=== PATIENT | male | born 1950 | race Caucasian/White ===

== ENCOUNTER 2017-12-11 15:32 | Inpatient (IN) | payer MEDICARE ==
[~2017-12-11] VITALS: Ht 170.2 cm; Wt 78.0 kg
[2017-12-11] MEDS ORDERED: SODIUM CHLORIDE FLUSH 10ML SYR IVF ONE ×2 (16:00→18:30)
[2017-12-11 16:16] LABS: BASOPHILS # (AUTO) 0.04 x10^3/uL (0-0.1); BASOPHILS % (AUTO) 0 % (0-1); EOSINOPHILS # (AUTO) 0.05 x10^3/uL (0-0.4); EOSINOPHILS % (AUTO) 0 % (1-7); LYMPHOCYTES # (AUTO) 2.64 x10^3/uL (1-3.4); LYMPHOCYTES % (AUTO) 18 % (22-44); MD NO; MEAN CORPUSCULAR HEMOGLOBIN 35.9 pg (27.5-34.5); MEAN CORPUSCULAR VOLUME 105.5 fL (81-97); MEAN PLATELET VOLUME 8.8 fL (7.4-10.4); MONOCYTES # (AUTO) 0.79 x10^3/uL (0.2-0.8); MONOCYTES % (AUTO) 5 % (2-9); NEUTROPHILS # (AUTO) 11.61 x10^3/uL (1.8-6.8); NEUTROPHILS % (AUTO) 77 % (42-75); PLATELET COUNT 292 x10^3/uL (130-400); RED CELL DISTRIBUTION WIDTH 13.2 % (9.4-14.8)
[2017-12-11 16:22] LABS: ALANINE AMINOTRANSFERASE 8 U/L (12-78); ALBUMIN 4.5 g/dL (3.4-5.0); ANION GAP 12 mmol/L (5-15); CALCIUM 8.4 mg/dL (8.5-10.1); CHLORIDE 106 mmol/L (98-107)
[2017-12-11 16:25] LABS: ALKALINE PHOSPHATASE 71 U/L (45-117); CREATININE 1.02 mg/dL (0.7-1.3); TOTAL PROTEIN 7.5 g/dL (6.4-8.2)
[2017-12-11] MEDS ORDERED: SODIUM CHLORIDE FLUSH 10ML SYR IVF PRN (19:00)
[2017-12-11] MEDS ORDERED: DOCUSATE 100 MG CAPSULE PO PRN (20:00)
[2017-12-11] MEDS ORDERED: ENALAPRILAT 1.25 MG/ML, 2ML IVPush PRN (20:00)
[2017-12-11] MEDS ORDERED: ACETAMINOPHEN 325 MG TABLET PO PRN (20:00)
[2017-12-11] MEDS ORDERED: ONDANSETRON ODT 4 MG PO PRN (20:00)
[2017-12-11 20:17] VITALS: BP 131/94
[2017-12-11] MEDS ORDERED: NAPR500T8 PO (20:51)
[2017-12-11] MEDS ORDERED: CARB1TAB3 PO (22:14)
[2017-12-11] MEDS ORDERED: PRAM0.7513 PO (22:14)
[2017-12-11 23:12] LABS: CULTURE INDICATED? NO; MICROSCOPIC AUTO
[2017-12-12 00:55] VITALS: BP 158/103
[2017-12-12 05:59] LABS: BASOPHILS # (AUTO) 0.04 x10^3/uL (0-0.1); BASOPHILS % (AUTO) 0 % (0-1); EOSINOPHILS # (AUTO) 0.09 x10^3/uL (0-0.4); EOSINOPHILS % (AUTO) 1 % (1-7); LYMPHOCYTES # (AUTO) 3.21 x10^3/uL (1-3.4); LYMPHOCYTES % (AUTO) 26 % (22-44); MD NO; MEAN CORPUSCULAR HGB CONC 33.9 g/dL (33.2-36.2); MEAN CORPUSCULAR VOLUME 106.2 fL (81-97); MEAN PLATELET VOLUME 8.9 fL (7.4-10.4); MONOCYTES # (AUTO) 1.01 x10^3/uL (0.2-0.8); MONOCYTES % (AUTO) 8 % (2-9); NEUTROPHILS % (AUTO) 65 % (42-75); PLATELET COUNT 253 x10^3/uL (130-400); RED BLOOD COUNT 4.34 x10^6/uL (4.38-5.82); RED CELL DISTRIBUTION WIDTH 13.6 % (9.4-14.8)
[2017-12-12 06:00] LABS: ANION GAP 9 mmol/L (5-15); CALCIUM 8.6 mg/dL (8.5-10.1); CHLORIDE 110 mmol/L (98-107)
[2017-12-12 06:03] LABS: CREATININE 1.01 mg/dL (0.7-1.3)
[2017-12-12 08:25] VITALS: BP 133/91
[2017-12-12] MEDS: PRAMIPEXOLE DI HCL 0.75 MG PO SCH (10:00)
[2017-12-12] MEDS: CARBIDOPA/LEVODOPA 25 MG/250 MG TABLET PO SCH ×3 (10:53→20:59)
[2017-12-12] MEDS ORDERED: NAPROXEN 500 MG TABLET PO PRN (11:30)
[2017-12-12 12:10] LABS: FOLATE LEVEL 19.1 ng/mL (3.1-17.5); THYROID STIMULATING HORMONE 1.56 mIU/L (0.358-3.740)
[2017-12-12 13:25] VITALS: BP 121/87
[2017-12-12 19:04] VITALS: BP 129/89
[2017-12-13 03:21] VITALS: BP 145/95
[2017-12-13 06:50] VITALS: BP 147/92
[2017-12-13 07:53] LABS: BASOPHILS # (AUTO) 0.05 x10^3/uL (0-0.1); BASOPHILS % (AUTO) 1 % (0-1); EOSINOPHILS # (AUTO) 0.12 x10^3/uL (0-0.4); EOSINOPHILS % (AUTO) 1 % (1-7); LYMPHOCYTES # (AUTO) 3.03 x10^3/uL (1-3.4); LYMPHOCYTES % (AUTO) 31 % (22-44); MD NO; MEAN CORPUSCULAR HEMOGLOBIN 36.1 pg (27.5-34.5); MEAN CORPUSCULAR HGB CONC 33.8 g/dL (33.2-36.2); MEAN CORPUSCULAR VOLUME 106.8 fL (81-97); MEAN PLATELET VOLUME 8.4 fL (7.4-10.4); MONOCYTES # (AUTO) 0.54 x10^3/uL (0.2-0.8); MONOCYTES % (AUTO) 5 % (2-9); NEUTROPHILS # (AUTO) 6.18 x10^3/uL (1.8-6.8); NEUTROPHILS % (AUTO) 62 % (42-75); PLATELET COUNT 243 x10^3/uL (130-400); RED CELL DISTRIBUTION WIDTH 13.8 % (9.4-14.8)
[2017-12-13] MEDS: CARBIDOPA/LEVODOPA 25 MG/250 MG TABLET PO SCH (09:43)
[2017-12-13] MEDS: PRAMIPEXOLE DI HCL 0.75 MG PO SCH (09:43)
== END 2017-12-13 12:00 | disposition home or self-care (01) | DRG 92 ==
LOC: ED 19:08 → EDIP 19:42 → 4NOR 20:11
PROVIDERS: ADMIT Hospitalist; ATTEND Hospitalist
DX: G92 Toxic encephalopathy (principal); R44.3 Hallucinations, unspecified; G20 Parkinson's disease; D72.829 Elevated white blood cell count, unspecified; D75.89 Other specified diseases of blood and blood-forming organs; T50.905A Adverse effect of unspecified drugs, medicaments and biological substances, initial encounter; Z87.891 Personal history of nicotine dependence; Z85.46 Personal history of malignant neoplasm of prostate; Z92.3 Personal history of irradiation
CPT/HCPCS: 36415; 70450; 71045; 80048; 80053; 81001; 82607; 82746; 84443; 85025; 87040; 93005; 99285

== ENCOUNTER → 2018-01-19 | Outpatient (CLI) | payer MEDICARE ==
[~2018-01-19] MED LIST: CARB1TAB3 PO; NAPR500T8 PO; PRAM0.7513 PO
== END | disposition home or self-care (01) ==
LOC: CFH 15:22
PROVIDERS: ATTEND Orthopaedic Surgery Orthopaedic Surgery of the Spine
DX: M48.07 Spinal stenosis, lumbosacral region (principal); M51.26 Other intervertebral disc displacement, lumbar region
CPT/HCPCS: 72148

== ENCOUNTER → 2018-02-26 | Outpatient (CLI) | payer MEDICARE | END | disposition home or self-care (01) | LOC: RAD 16:36 | PROVIDERS: ATTEND Orthopaedic Surgery | DX: M43.17 Spondylolisthesis, lumbosacral region (principal); M51.36 Other intervertebral disc degeneration, lumbar region; M41.86 Other forms of scoliosis, lumbar region | CPT/HCPCS: 72110 ==

== ENCOUNTER → 2018-04-28 | Outpatient (CLI) | payer MEDICARE | END | disposition home or self-care (01) | LOC: CVU 16:20 | PROVIDERS: ATTEND Nurse Practitioner Family | DX: I08.0 Rheumatic disorders of both mitral and aortic valves (principal); G20 Parkinson's disease | CPT/HCPCS: 93306 ==

== ENCOUNTER → 2018-05-24 | Outpatient (CLI) | payer MEDICARE | END | disposition home or self-care (01) | LOC: CFH 15:14 | PROVIDERS: ATTEND Physician Assistant Surgical | DX: M51.36 Other intervertebral disc degeneration, lumbar region (principal); M54.16 Radiculopathy, lumbar region; M41.86 Other forms of scoliosis, lumbar region; M25.78 Osteophyte, vertebrae | CPT/HCPCS: 72110; 72148 ==

== ENCOUNTER 2018-05-30 11:26 | Inpatient (IN) | payer MEDICARE ==
[~2018-05-30] VITALS: Ht 165.1 cm; Wt 76.7 kg
[2018-05-30 14:37] VITALS: BP 131/87
[2018-05-30] MEDS ORDERED: INSULIN LISPRO 100 UNITS/ML, PEN SQ-INSULIN SCH (15:00)
[2018-05-30] MEDS ORDERED: CHLORHEXIDINE 15 ML BOTTLE MM PRN (15:00)
[2018-05-30 15:17] LABS: BASOPHILS # (AUTO) 0.07 x10^3/uL (0-0.1); BASOPHILS % (AUTO) 1 % (0-1); EOSINOPHILS # (AUTO) 0.15 x10^3/uL (0-0.4); EOSINOPHILS % (AUTO) 1 % (1-7); LYMPHOCYTES # (AUTO) 2.96 x10^3/uL (1-3.4); LYMPHOCYTES % (AUTO) 29 % (22-44); MD NO; MEAN CORPUSCULAR HEMOGLOBIN 34.2 pg (27.5-34.5); MEAN CORPUSCULAR HGB CONC 33.3 g/dL (33.2-36.2); MEAN CORPUSCULAR VOLUME 102.8 fL (81-97); MEAN PLATELET VOLUME 8.7 fL (7.4-10.4); MONOCYTES # (AUTO) 0.48 x10^3/uL (0.2-0.8); MONOCYTES % (AUTO) 5 % (2-9); NEUTROPHILS # (AUTO) 6.43 x10^3/uL (1.8-6.8); NEUTROPHILS % (AUTO) 64 % (42-75); PLATELET COUNT 276 x10^3/uL (130-400); RED BLOOD COUNT 4.45 x10^6/uL (4.38-5.82); RED CELL DISTRIBUTION WIDTH 14.1 % (9.4-14.8)
[2018-05-30 15:28] LABS: ALANINE AMINOTRANSFERASE 15 U/L (12-78); ALBUMIN 3.8 g/dL (3.4-5.0); ANION GAP 6 mmol/L (5-15); CALCIUM 8.8 mg/dL (8.5-10.1); CHLORIDE 107 mmol/L (98-107); CREATININE 1.05 mg/dL (0.7-1.3)
[2018-05-30 15:31] LABS: ALKALINE PHOSPHATASE 71 U/L (45-117); BILIRUBIN,TOTAL 0.7 mg/dL (0.2-1.0); TOTAL PROTEIN 6.8 g/dL (6.4-8.2)
[2018-05-30 15:38] LABS: INTERNATIONAL NORMALIZED RATIO 1.07 (0.93-1.1); PROTHROMBIN TIME 11.1 Seconds (9.6-11.5)
[2018-05-30 15:44] VITALS: BP 124/89
[2018-05-30 15:46] LABS: HEMOGLOBIN A1C 5.5 % (4.2-6.3)
[2018-05-30] MEDS ORDERED: CARB1TAB44 PO (16:22)
[2018-05-30] MEDS ORDERED: ONDANSETRON ODT 4 MG PO PRN (16:30)
[2018-05-30] MEDS ORDERED: HYDROcodone/APAP 5/325 TABLET PO PRN (16:30)
[2018-05-30] MEDS ORDERED: ONDANSETRON 2MG/ML, 2ML IVPush PRN (16:30)
[2018-05-30] MEDS ORDERED: hydrALAzine 20 MG/ML, 1ML IVPush PRN (16:30)
[2018-05-30] MEDS ORDERED: morphine SULFATE 10 MG/ML, 1ML IVPush PRN (16:30)
[2018-05-30] MEDS ORDERED: ACETAMINOPHEN 325 MG TABLET PO PRN (16:30)
[2018-05-30] MEDS: CARBIDOPA/LEVODOPA CR 50 MG/200 MG TABLET PO SCH ×2 (16:30→21:15)
[2018-05-30] MEDS ORDERED: POLYETHYLENE GLYCOL 17 GM PACKET PO PRN (16:30)
[2018-05-30 17:10] LABS: MICROSCOPIC NOT IND
[2018-05-30] MEDS: MUPIROCIN OINT 2%, 22GM TP SCH (21:15)
[2018-05-30] MEDS: SODIUM CHLORIDE FLUSH 10ML SYR IVF SCH (21:16)
[2018-05-30 21:26] VITALS: BP 122/80
[2018-05-31 01:15] VITALS: BP 121/84
[2018-05-31] MEDS: ATORVASTATIN 40 MG TABLET PO SCH ×2 (01:30→21:04)
[2018-05-31 04:32] LABS: BASOPHILS # (AUTO) 0.06 x10^3/uL (0-0.1); BASOPHILS % (AUTO) 1 % (0-1); EOSINOPHILS # (AUTO) 0.15 x10^3/uL (0-0.4); EOSINOPHILS % (AUTO) 2 % (1-7); LYMPHOCYTES # (AUTO) 3.03 x10^3/uL (1-3.4); LYMPHOCYTES % (AUTO) 30 % (22-44); MD NO; MEAN CORPUSCULAR HEMOGLOBIN 34.4 pg (27.5-34.5); MEAN CORPUSCULAR HGB CONC 33.5 g/dL (33.2-36.2); MEAN CORPUSCULAR VOLUME 102.7 fL (81-97); MEAN PLATELET VOLUME 9.1 fL (7.4-10.4); MONOCYTES # (AUTO) 0.54 x10^3/uL (0.2-0.8); MONOCYTES % (AUTO) 5 % (2-9); NEUTROPHILS # (AUTO) 6.21 x10^3/uL (1.8-6.8); NEUTROPHILS % (AUTO) 62 % (42-75); PLATELET COUNT 253 x10^3/uL (130-400); RED BLOOD COUNT 4.45 x10^6/uL (4.38-5.82); RED CELL DISTRIBUTION WIDTH 14.5 % (9.4-14.8)
[2018-05-31 04:46] LABS: CHLORIDE 108 mmol/L (98-107)
[2018-05-31 04:50] LABS: ALANINE AMINOTRANSFERASE 13 U/L (12-78); ALBUMIN 3.7 g/dL (3.4-5.0); ALKALINE PHOSPHATASE 65 U/L (45-117); ANION GAP 6 mmol/L (5-15); BILIRUBIN,TOTAL 1.1 mg/dL (0.2-1.0); CALCIUM 8.6 mg/dL (8.5-10.1); CREATININE 1.08 mg/dL (0.7-1.3); TOTAL PROTEIN 6.7 g/dL (6.4-8.2)
[2018-05-31 05:39] VITALS: BP_SYST 129; BP_SYST 138; BP_DIAS 86; BP_DIAS 89
[2018-05-31] MEDS ORDERED: REGULAR INSULIN 62.5 UNITS in SODIUM CHLORIDE 0.9% 249.375 ML IV PRN (07:30)
[2018-05-31] MEDS ORDERED: EPINEPHRINE 2 MG in SODIUM CHLORIDE 0.9% 248 ML IV SCH (07:30)
[2018-05-31] MEDS ORDERED: POTASSIUM CHLORIDE 80 MEQ, SODIUM BICARBONATE 8.4% 10 MEQ, MAGNESIUM SULFATE 0.5 GM, LI... IV PRN (07:30)
[2018-05-31] MEDS ORDERED: DEXMEDETOMIDINE 200 MCG in SODIUM CHLORIDE 0.9% 48 ML IV SCH (07:30)
[2018-05-31] MEDS ORDERED: PHENYLEPHRINE 10 MG in SODIUM CHLORIDE 0.9% 249 ML IV PRN (07:30)
[2018-05-31] MEDS ORDERED: CEFUROXIME 1.5 GM in SODIUM CHLORIDE 0.9% 50 ML IVPB PRN (07:30)
[2018-05-31] MEDS ORDERED: VANCOMYCIN 1,500 MG in SODIUM CHLORIDE 0.9% 250 ML IVPB PRN (07:30)
[2018-05-31] MEDS ORDERED: MANNITOL PMX 20% 500 ML IVPB PRN (07:30)
[2018-05-31] MEDS: MUPIROCIN OINT 2%, 22GM TP SCH ×2 (09:00→21:04)
[2018-05-31] MEDS ORDERED: PRAMIPEXOLE 0.25MG TABLET PO SCH (09:00)
[2018-05-31] MEDS: ASPIRIN 325 MG TABLET PO SCH (09:00)
[2018-05-31] MEDS: PRAMIPEXOLE 0.75 MG PO SCH (09:00)
[2018-05-31 09:38] VITALS: BP 119/80
[2018-05-31] MEDS: CARBIDOPA/LEVODOPA CR 50 MG/200 MG TABLET PO SCH ×3 (09:47→21:04)
[2018-05-31] MEDS: SODIUM CHLORIDE FLUSH 10ML SYR IVF SCH ×2 (09:48→21:04)
[2018-05-31] MEDS ORDERED: ALBUMIN HUMAN 5% 500 ML IV PRN (11:30)
[2018-05-31 15:14] VITALS: BP 117/77
[2018-05-31 18:40] VITALS: BP 106/72
[2018-06-01 00:47] VITALS: BP 122/72
[2018-06-01 01:39] VITALS: BP 142/93
[2018-06-01 05:17] LABS: BASOPHILS # (AUTO) 0.05 x10^3/uL (0-0.1); BASOPHILS % (AUTO) 1 % (0-1); EOSINOPHILS # (AUTO) 0.23 x10^3/uL (0-0.4); EOSINOPHILS % (AUTO) 2 % (1-7); LYMPHOCYTES # (AUTO) 3.18 x10^3/uL (1-3.4); LYMPHOCYTES % (AUTO) 33 % (22-44); MD NO; MEAN CORPUSCULAR HEMOGLOBIN 34.7 pg (27.5-34.5); MEAN CORPUSCULAR HGB CONC 33.9 g/dL (33.2-36.2); MEAN CORPUSCULAR VOLUME 102.2 fL (81-97); MONOCYTES # (AUTO) 0.58 x10^3/uL (0.2-0.8); MONOCYTES % (AUTO) 6 % (2-9); NEUTROPHILS # (AUTO) 5.76 x10^3/uL (1.8-6.8); NEUTROPHILS % (AUTO) 59 % (42-75); PLATELET COUNT 259 x10^3/uL (130-400); RED BLOOD COUNT 4.35 x10^6/uL (4.38-5.82); RED CELL DISTRIBUTION WIDTH 14.2 % (9.4-14.8)
[2018-06-01 05:35] LABS: ALBUMIN 3.5 g/dL (3.4-5.0); ANION GAP 9 mmol/L (5-15); CALCIUM 8.7 mg/dL (8.5-10.1); CHLORIDE 107 mmol/L (98-107)
[2018-06-01 05:40] LABS: ALANINE AMINOTRANSFERASE 11 U/L (12-78); ALKALINE PHOSPHATASE 66 U/L (45-117); BILIRUBIN,TOTAL 1.5 mg/dL (0.2-1.0); CREATININE 0.97 mg/dL (0.7-1.3); TOTAL PROTEIN 6.3 g/dL (6.4-8.2)
[2018-06-01 07:48] VITALS: BP 128/87
[2018-06-01] MEDS: MUPIROCIN OINT 2%, 22GM TP SCH ×3 (09:00→21:58)
[2018-06-01] MEDS: PRAMIPEXOLE 0.75 MG PO SCH (09:00)
[2018-06-01] MEDS: ASPIRIN 325 MG TABLET PO SCH (09:11)
[2018-06-01] MEDS: SODIUM CHLORIDE FLUSH 10ML SYR IVF SCH ×2 (09:12→21:59)
[2018-06-01] MEDS: CARBIDOPA/LEVODOPA CR 50 MG/200 MG TABLET PO SCH ×3 (09:12→21:58)
[2018-06-01] MEDS ORDERED: INSULIN LISPRO 100 UNITS/ML, PEN SQ-INSULIN SCH (10:00)
[2018-06-01 10:41] LABS: BASOPHILS # (AUTO) 0.05 x10^3/uL (0-0.1); BASOPHILS % (AUTO) 1 % (0-1); EOSINOPHILS # (AUTO) 0.13 x10^3/uL (0-0.4); EOSINOPHILS % (AUTO) 1 % (1-7); LYMPHOCYTES # (AUTO) 2.39 x10^3/uL (1-3.4); LYMPHOCYTES % (AUTO) 25 % (22-44); MD NO; MEAN CORPUSCULAR HEMOGLOBIN 34.1 pg (27.5-34.5); MEAN CORPUSCULAR HGB CONC 33.1 g/dL (33.2-36.2); MEAN CORPUSCULAR VOLUME 103.3 fL (81-97); MEAN PLATELET VOLUME 8.9 fL (7.4-10.4); MONOCYTES # (AUTO) 0.47 x10^3/uL (0.2-0.8); MONOCYTES % (AUTO) 5 % (2-9); NEUTROPHILS # (AUTO) 6.54 x10^3/uL (1.8-6.8); NEUTROPHILS % (AUTO) 68 % (42-75); PLATELET COUNT 277 x10^3/uL (130-400); RED BLOOD COUNT 4.44 x10^6/uL (4.38-5.82); RED CELL DISTRIBUTION WIDTH 14.2 % (9.4-14.8)
[2018-06-01 10:53] LABS: ALBUMIN 3.7 g/dL (3.4-5.0); ANION GAP 6 mmol/L (5-15); CALCIUM 8.8 mg/dL (8.5-10.1); CHLORIDE 107 mmol/L (98-107)
[2018-06-01 10:56] LABS: ALANINE AMINOTRANSFERASE 14 U/L (12-78); ALKALINE PHOSPHATASE 67 U/L (45-117); BILIRUBIN,TOTAL 1.2 mg/dL (0.2-1.0); CREATININE 1.06 mg/dL (0.7-1.3); INTERNATIONAL NORMALIZED RATIO 1.08 (0.93-1.1); PROTHROMBIN TIME 11.2 Seconds (9.6-11.5); TOTAL PROTEIN 6.4 g/dL (6.4-8.2)
[2018-06-01 13:20] VITALS: BP 116/80
[2018-06-01 19:12] VITALS: BP 121/78
[2018-06-01] MEDS ORDERED: CHLORHEXIDINE 15 ML BOTTLE MM PRN (20:00)
[2018-06-01] MEDS ORDERED: SODIUM CHLORIDE FLUSH 10ML SYR IVF SCH (21:00)
[2018-06-01] MEDS: ATORVASTATIN 40 MG TABLET PO SCH (21:58)
[2018-06-01] MEDS ORDERED: DIPHENHYDRAMINE 25 MG CAPSULE ONE (23:12)
[2018-06-01] MEDS ORDERED: DIPHENHYDRAMINE 25 MG CAPSULE PO PRN (23:30)
[2018-06-02 04:10] VITALS: BP_SYST 136; BP_SYST 141; BP_DIAS 86; BP_DIAS 93
[2018-06-02] MEDS: MUPIROCIN OINT 2%, 22GM TP SCH (05:29)
[2018-06-02 05:42] LABS: BASOPHILS # (AUTO) 0.01 x10^3/uL (0-0.1); BASOPHILS % (AUTO) 0 % (0-1); EOSINOPHILS # (AUTO) 0.21 x10^3/uL (0-0.4); EOSINOPHILS % (AUTO) 2 % (1-7); LYMPHOCYTES # (AUTO) 3.29 x10^3/uL (1-3.4); LYMPHOCYTES % (AUTO) 33 % (22-44); MD NO; MEAN CORPUSCULAR HEMOGLOBIN 34.5 pg (27.5-34.5); MEAN CORPUSCULAR HGB CONC 33.3 g/dL (33.2-36.2); MEAN CORPUSCULAR VOLUME 103.4 fL (81-97); MEAN PLATELET VOLUME 9.4 fL (7.4-10.4); MONOCYTES # (AUTO) 0.68 x10^3/uL (0.2-0.8); MONOCYTES % (AUTO) 7 % (2-9); NEUTROPHILS % (AUTO) 59 % (42-75); PLATELET COUNT 259 x10^3/uL (130-400); RED BLOOD COUNT 4.28 x10^6/uL (4.38-5.82); RED CELL DISTRIBUTION WIDTH 14.4 % (9.4-14.8)
[2018-06-02 05:45] LABS: CALCIUM 9.2 mg/dL (8.5-10.1); CHLORIDE 108 mmol/L (98-107)
[2018-06-02 05:49] LABS: ALANINE AMINOTRANSFERASE 11 U/L (12-78); ALBUMIN 3.7 g/dL (3.4-5.0); ALKALINE PHOSPHATASE 64 U/L (45-117); ANION GAP 9 mmol/L (5-15); BILIRUBIN,TOTAL 1.1 mg/dL (0.2-1.0); CREATININE 0.89 mg/dL (0.7-1.3); TOTAL PROTEIN 6.6 g/dL (6.4-8.2)
[2018-06-02] MEDS ORDERED: PAPAVERINE 30 MG/ML, 2ML ONE (06:10)
[2018-06-02] MEDS ORDERED: HEPARIN 1,000 UNITS/ML, 10ML ONE (06:10)
[2018-06-02] MEDS ORDERED: FENTANYL PF 250 MCG/5ML ONE ×4 (06:32)
[2018-06-02] MEDS ORDERED: MIDAZOLAM 10MG/2 ML ONE (06:32)
[2018-06-02] MEDS ORDERED: CALCIUM CHLORIDE 10%, 10ML SYR ONE (06:33)
[2018-06-02] MEDS ORDERED: AMINOCAPROIC ACID 250 MG/ML, 20ML ONE (06:34)
[2018-06-02] MEDS ORDERED: PHENYLEPHRINE 10 MG/ML ONE (06:34)
[2018-06-02] MEDS ORDERED: PROPOFOL 10 MG/ML, 20ML ONE (07:18)
[2018-06-02] MEDS ORDERED: REGULAR INSULIN 62.5 UNITS in SODIUM CHLORIDE 0.9% 249.375 ML IV PRN ×2 (07:30→10:50)
[2018-06-02] MEDS ORDERED: DEXMEDETOMIDINE 200 MCG in SODIUM CHLORIDE 0.9% 48 ML IV SCH (07:30)
[2018-06-02] MEDS ORDERED: PHENYLEPHRINE 10 MG in SODIUM CHLORIDE 0.9% 249 ML IV PRN ×2 (07:30→10:50)
[2018-06-02] MEDS ORDERED: MANNITOL PMX 20% 500 ML IVPB PRN (07:30)
[2018-06-02] MEDS ORDERED: VANCOMYCIN 1,500 MG in SODIUM CHLORIDE 0.9% 250 ML IVPB PRN (07:30)
[2018-06-02] MEDS ORDERED: ALBUMIN HUMAN 5% 500 ML IV PRN (07:30)
[2018-06-02] MEDS ORDERED: EPINEPHRINE 2 MG in SODIUM CHLORIDE 0.9% 248 ML IV SCH (07:30)
[2018-06-02] MEDS ORDERED: DIPHENHYDRAMINE 25 MG CAPSULE PO PRN (07:30)
[2018-06-02] MEDS ORDERED: CEFUROXIME 1.5 GM in SODIUM CHLORIDE 0.9% 50 ML IVPB PRN (07:30)
[2018-06-02] MEDS ORDERED: POTASSIUM CHLORIDE 80 MEQ, SODIUM BICARBONATE 8.4% 10 MEQ, MAGNESIUM SULFATE 0.5 GM, LI... IV PRN (07:30)
[2018-06-02] MEDS: DOCUSATE 100 MG CAPSULE PO SCH ×2 (09:00→21:07)
[2018-06-02] MEDS: PRAMIPEXOLE 0.75 MG PO SCH (09:00)
[2018-06-02] MEDS ORDERED: LACTATED RINGERS 1,000 ML IV SCH (10:50)
[2018-06-02] MEDS ORDERED: VASOPRESSIN 50 UNIT in SODIUM CHLORIDE 0.9% 247.5 ML IV PRN (10:50)
[2018-06-02] MEDS ORDERED: NITROGLYCERIN/D5W PMX 250 ML IV PRN (10:50)
[2018-06-02] MEDS ORDERED: DEXMEDETOMIDINE 200 MCG in SODIUM CHLORIDE 0.9% 48 ML IV PRN (10:50)
[2018-06-02] MEDS ORDERED: DOBUTAMINE 250 MG in SODIUM CHLORIDE 0.9% 230 ML IV PRN (10:50)
[2018-06-02] MEDS ORDERED: SODIUM CHLORIDE 0.9% 1,000 ML IV PRN (10:50)
[2018-06-02] MEDS ORDERED: LIDOCAINE 2% 100MG/5ML SYRINGE ONE (10:56)
[2018-06-02] MEDS ORDERED: ALBUMIN HUMAN 25% 50 ML ONE (10:57)
[2018-06-02] MEDS ORDERED: HEPARIN 1,000 UNITS/ML, 30ML ONE (10:57)
[2018-06-02] MEDS ORDERED: methylPREDNISolone SOD SUCC 125 MG/2 ML ONE (10:57)
[2018-06-02] MEDS ORDERED: BISACODYL 10 MG SUPP PR PRN (11:00)
[2018-06-02] MEDS ORDERED: BISACODYL 5 MG EC TABLET PO PRN (11:00)
[2018-06-02] MEDS ORDERED: morphine SULFATE 10 MG/ML, 1ML IVPush PRN (11:00)
[2018-06-02] MEDS: KSCALE TO 4.5 IV SCH ×3 (11:00→23:00)
[2018-06-02] MEDS ORDERED: EPINEPHRINE 2 MG in SODIUM CHLORIDE 0.9% 248 ML IV PRN (11:00)
[2018-06-02] MEDS: INSULIN LISPRO 100 UNITS/ML, PEN SQ-INSULIN SCH ×3 (11:00→21:00)
[2018-06-02] MEDS ORDERED: ACETAMINOPHEN 650 MG SUPP PR PRN (11:00)
[2018-06-02] MEDS ORDERED: INSULIN REGULAR 100 UNITS/ML, 3ML VIAL IVPush PRN (11:00)
[2018-06-02] MEDS ORDERED: HYDROcodone/APAP 10/325 MG TABLET PO PRN (11:00)
[2018-06-02] MEDS ORDERED: HYDROcodone/APAP 5/325 TABLET PO PRN (11:00)
[2018-06-02] MEDS ORDERED: DEXTROSE 4 GM TAB.CHEW PO PRN (11:00)
[2018-06-02] MEDS ORDERED: PROCHLORPERAZINE 5 MG/ML, 2ML IVPush PRN (11:00)
[2018-06-02] MEDS ORDERED: DEXTROSE 50%, 50ML SYRINGE IVPush PRN (11:00)
[2018-06-02] MEDS ORDERED: SODIUM BICARB 8.4%, 50ML SYRINGE IV PRN (11:00)
[2018-06-02] MEDS ORDERED: ONDANSETRON 2MG/ML, 2ML IVPush PRN (11:00)
[2018-06-02] MEDS ORDERED: MIDAZOLAM 1 MG/ML, 5ML IVPush PRN (11:00)
[2018-06-02] MEDS ORDERED: ACETAMINOPHEN 325 MG TABLET PO PRN (11:00)
[2018-06-02] MEDS ORDERED: GLUCAGON 1 MG IM PRN (11:00)
[2018-06-02] MEDS ORDERED: LACTATED RINGERS 1,000 ML IV PRN (11:00)
[2018-06-02 11:23] LABS: GLUCOSE BY BLOOD GAS ANALYZER 128 mg/dL (70-110); HEMOGLOBIN BY BLOOD GAS ANALYZ 13.1 g/dL (14.0-18.0); POTASSIUM BY BLOOD GAS ANALYZR 3.5 mmol/L (3.6-5.5)
[2018-06-02] MEDS ORDERED: MAGNESIUM SULFATE 1 GM in SODIUM CHLORIDE 0.9% 50 ML IVPB SCH (12:00)
[2018-06-02] MEDS ORDERED: MAGNESIUM SULFATE 1 GM in STERILE WATER 25 ML IVPB SCH (12:00)
[2018-06-02] MEDS ORDERED: MAGNESIUM SULFATE IVPB SCH (12:00)
[2018-06-02] MEDS ORDERED: STERILE WATER IVPB SCH (12:00)
[2018-06-02 12:22] LABS: INTERNATIONAL NORMALIZED RATIO 1.32 (0.93-1.1); PROTHROMBIN TIME 13.7 Seconds (9.6-11.5)
[2018-06-02 12:28] LABS: PARTIAL THROMBOPLASTIN TIME > 153 Seconds (25-31)
[2018-06-02] MEDS ORDERED: POTASSIUM CHLORIDE PMX 100 ML IV ONE ×2 (13:00→17:30)
[2018-06-02] MEDS: CARBIDOPA/LEVODOPA CR 50 MG/200 MG TABLET PO SCH ×3 (13:44→21:04)
[2018-06-02] MEDS ORDERED: CARBIDOPA/LEVODOPA 25 MG/100 MG TABLET PO ONE (14:00)
[2018-06-02] MEDS ORDERED: ALBUMIN HUMAN 5% 500 ML IV ONE (16:30)
[2018-06-02] MEDS: OXYcodone IR 5MG TABLET PO PRN (18:12)
[2018-06-02] MEDS: CEFUROXIME 1.5 GM in SODIUM CHLORIDE 0.9% 50 ML IVPB SCH (18:27)
[2018-06-02] MEDS: MUPIROCIN OINT 2%, 22GM NAS SCH (21:04)
[2018-06-02] MEDS: SODIUM CHLORIDE FLUSH 10ML SYR IVF SCH (21:04)
[2018-06-02] MEDS: ATORVASTATIN 40 MG TABLET PO SCH (21:07)
[2018-06-03] MEDS: OXYcodone IR 5MG TABLET PO PRN ×4 (00:31→15:57)
[2018-06-03] MEDS: KSCALE TO 4.5 IV SCH (05:00)
[2018-06-03 05:35] LABS: BASOPHILS # (AUTO) 0.02 x10^3/uL (0-0.1); BASOPHILS % (AUTO) 0 % (0-1); EOSINOPHILS % (AUTO) 0 % (1-7); LYMPHOCYTES # (AUTO) 1.21 x10^3/uL (1-3.4); LYMPHOCYTES % (AUTO) 8 % (22-44); MD NO; MEAN CORPUSCULAR HEMOGLOBIN 35.1 pg (27.5-34.5); MEAN CORPUSCULAR HGB CONC 34.3 g/dL (33.2-36.2); MEAN CORPUSCULAR VOLUME 102.4 fL (81-97); MEAN PLATELET VOLUME 9.3 fL (7.4-10.4); MONOCYTES % (AUTO) 8 % (2-9); NEUTROPHILS # (AUTO) 12.38 x10^3/uL (1.8-6.8); NEUTROPHILS % (AUTO) 84 % (42-75); PLATELET COUNT 182 x10^3/uL (130-400); RED BLOOD COUNT 3.03 x10^6/uL (4.38-5.82); RED CELL DISTRIBUTION WIDTH 14.4 % (9.4-14.8)
[2018-06-03 05:49] LABS: ALBUMIN 3.4 g/dL (3.4-5.0); ANION GAP 6 mmol/L (5-15); CALCIUM 7.8 mg/dL (8.5-10.1); CHLORIDE 114 mmol/L (98-107); CREATININE 0.76 mg/dL (0.7-1.3)
[2018-06-03] MEDS: MUPIROCIN OINT 2%, 22GM NAS SCH ×2 (08:00→20:30)
[2018-06-03] MEDS: CEFUROXIME 1.5 GM in SODIUM CHLORIDE 0.9% 50 ML IVPB SCH (08:00)
[2018-06-03] MEDS: INSULIN LISPRO 100 UNITS/ML, PEN SQ-INSULIN SCH ×4 (08:00→20:33)
[2018-06-03] MEDS: PRAMIPEXOLE 0.75 MG PO SCH (08:02)
[2018-06-03] MEDS: ASPIRIN 81 MG TABLET EC PO SCH (08:19)
[2018-06-03] MEDS: DOCUSATE 100 MG CAPSULE PO SCH ×2 (08:19→20:31)
[2018-06-03] MEDS: CARBIDOPA/LEVODOPA CR 50 MG/200 MG TABLET PO SCH ×3 (08:19→20:29)
[2018-06-03] MEDS: SODIUM CHLORIDE FLUSH 10ML SYR IVF SCH ×3 (08:20→20:30)
[2018-06-03] MEDS ORDERED: MAGNESIUM SULFATE IV SCH (08:30)
[2018-06-03] MEDS ORDERED: STERILE WATER IV SCH (08:30)
[2018-06-03] MEDS ORDERED: MAGNESIUM SULF. PMX 20GM/500ML 50 ML IV SCH (08:30)
[2018-06-03] MEDS: WARFARIN BIOPROSTHETIC VALVE PROTOCOL 2-3 XX SCH (09:00)
[2018-06-03] MEDS: MAGNESIUM SULFATE 1 GM in STERILE WATER 25 ML IV SCH (10:20)
[2018-06-03] MEDS: CHLORHEXIDINE 15 ML BOTTLE MM SCH (10:46)
[2018-06-03 11:57] LABS: INTERNATIONAL NORMALIZED RATIO 1.26 (0.93-1.1)
[2018-06-03] MEDS ORDERED: MAGNESIUM HYDROXIDE 8%, 30ML UDC PO PRN (13:00)
[2018-06-03 17:30] VITALS: BP 115/68
[2018-06-03] MEDS ORDERED: WARFARIN 5 MG TABLET PO-COUM ONE (18:00)
[2018-06-03 19:21] VITALS: BP 112/75
[2018-06-03] MEDS: ATORVASTATIN 40 MG TABLET PO SCH (20:28)
[2018-06-04 00:11] VITALS: BP 111/67
[2018-06-04] MEDS: CHLORHEXIDINE 15 ML BOTTLE MM SCH ×3 (00:22→21:18)
[2018-06-04 04:51] LABS: MEAN CORPUSCULAR HEMOGLOBIN 34.9 pg (27.5-34.5); MEAN CORPUSCULAR HGB CONC 33.7 g/dL (33.2-36.2); MEAN CORPUSCULAR VOLUME 103.6 fL (81-97); MEAN PLATELET VOLUME 9.6 fL (7.4-10.4); PLATELET COUNT 173 x10^3/uL (130-400); RED BLOOD COUNT 3.02 x10^6/uL (4.38-5.82); RED CELL DISTRIBUTION WIDTH 14.5 % (9.4-14.8)
[2018-06-04 05:03] LABS: ANION GAP 7 mmol/L (5-15); CALCIUM 8.2 mg/dL (8.5-10.1); CHLORIDE 108 mmol/L (98-107); CREATININE 0.78 mg/dL (0.7-1.3)
[2018-06-04 05:46] LABS: BASOPHILS # (AUTO) 0.07 x10^3/uL (0-0.1); BASOPHILS % (AUTO) 0 % (0-1); EOSINOPHILS # (AUTO) 0.01 x10^3/uL (0-0.4); EOSINOPHILS % (AUTO) 0 % (1-7); LYMPHOCYTES # (AUTO) 1.26 x10^3/uL (1-3.4); LYMPHOCYTES % (AUTO) 8 % (22-44); MD SCAN; MONOCYTES # (AUTO) 1.05 x10^3/uL (0.2-0.8); MONOCYTES % (AUTO) 6 % (2-9); NEUTROPHILS # (AUTO) 14.37 x10^3/uL (1.8-6.8); NEUTROPHILS % (AUTO) 86 % (42-75)
[2018-06-04 06:40] LABS: INTERNATIONAL NORMALIZED RATIO 1.16 (0.93-1.1)
[2018-06-04] MEDS: INSULIN LISPRO 100 UNITS/ML, PEN SQ-INSULIN SCH ×4 (07:00→20:52)
[2018-06-04 07:50] VITALS: BP 113/72
[2018-06-04] MEDS: ENOXAPARIN 40 MG/0.4 ML SQ SCH (08:13)
[2018-06-04] MEDS: ASPIRIN 81 MG TABLET EC PO SCH (08:13)
[2018-06-04] MEDS: DOCUSATE 100 MG CAPSULE PO SCH ×2 (08:13→21:12)
[2018-06-04] MEDS: FUROSEMIDE 20 MG/2 ML IV SCH ×2 (08:13→17:05)
[2018-06-04] MEDS: SODIUM CHLORIDE FLUSH 10ML SYR IVF SCH ×3 (08:14→21:12)
[2018-06-04] MEDS: MUPIROCIN OINT 2%, 22GM NAS SCH ×2 (08:14→21:11)
[2018-06-04] MEDS: POTASSIUM CHLORIDE 10 MEQ TABLET.ER PO SCH (08:14)
[2018-06-04] MEDS: PRAMIPEXOLE 0.75 MG PO SCH (08:15)
[2018-06-04] MEDS: WARFARIN BIOPROSTHETIC VALVE PROTOCOL 2-3 XX SCH (08:16)
[2018-06-04] MEDS: CARBIDOPA/LEVODOPA CR 50 MG/200 MG TABLET PO SCH ×3 (08:16→18:41)
[2018-06-04] MEDS ORDERED: FUROSEMIDE 20 MG/2 ML IV SCH (09:00)
[2018-06-04 09:21] LABS: MICROSCOPIC AUTO
[2018-06-04 09:26] LABS: CULTURE INDICATED? NO
[2018-06-04] MEDS: MAGNESIUM SULFATE 1 GM in STERILE WATER 25 ML IV SCH (10:00)
[2018-06-04 16:23] VITALS: BP 103/70
[2018-06-04] MEDS ORDERED: WARFARIN 5 MG TABLET PO-COUM ONE (18:00)
[2018-06-04 19:07] VITALS: BP 85/51
[2018-06-04 19:11] VITALS: BP 98/65
[2018-06-04] MEDS: OXYcodone IR 5MG TABLET PO PRN (21:12)
[2018-06-04] MEDS: ATORVASTATIN 40 MG TABLET PO SCH (21:12)
[2018-06-05 00:27] VITALS: BP 123/80
[2018-06-05 03:35] LABS: ANION GAP 8 mmol/L (5-15); CALCIUM 7.7 mg/dL (8.5-10.1); CHLORIDE 107 mmol/L (98-107); CREATININE 0.77 mg/dL (0.7-1.3)
[2018-06-05 03:38] LABS: INTERNATIONAL NORMALIZED RATIO 1.46 (0.93-1.1); PROTHROMBIN TIME 15.1 Seconds (9.6-11.5)
[2018-06-05 03:47] LABS: BASOPHILS # (AUTO) 0.05 x10^3/uL (0-0.1); BASOPHILS % (AUTO) 0 % (0-1); EOSINOPHILS # (AUTO) 0.03 x10^3/uL (0-0.4); EOSINOPHILS % (AUTO) 0 % (1-7); LYMPHOCYTES # (AUTO) 1.81 x10^3/uL (1-3.4); LYMPHOCYTES % (AUTO) 14 % (22-44); MD NO; MEAN CORPUSCULAR HEMOGLOBIN 35.6 pg (27.5-34.5); MEAN CORPUSCULAR HGB CONC 34.5 g/dL (33.2-36.2); MEAN CORPUSCULAR VOLUME 103.3 fL (81-97); MEAN PLATELET VOLUME 9.1 fL (7.4-10.4); MONOCYTES # (AUTO) 0.93 x10^3/uL (0.2-0.8); MONOCYTES % (AUTO) 7 % (2-9); NEUTROPHILS # (AUTO) 10.22 x10^3/uL (1.8-6.8); NEUTROPHILS % (AUTO) 78 % (42-75); PLATELET COUNT 175 x10^3/uL (130-400); RED BLOOD COUNT 2.66 x10^6/uL (4.38-5.82); RED CELL DISTRIBUTION WIDTH 14.1 % (9.4-14.8)
[2018-06-05] MEDS: INSULIN LISPRO 100 UNITS/ML, PEN SQ-INSULIN SCH ×2 (06:26→12:54)
[2018-06-05 07:12] VITALS: BP 119/78
[2018-06-05] MEDS: WARFARIN BIOPROSTHETIC VALVE PROTOCOL 2-3 XX SCH (07:43)
[2018-06-05] MEDS: ASPIRIN 81 MG TABLET EC PO SCH (09:24)
[2018-06-05] MEDS: POTASSIUM CHLORIDE 10 MEQ TABLET.ER PO SCH (09:24)
[2018-06-05] MEDS: FUROSEMIDE 20 MG/2 ML IV SCH ×2 (09:25→17:10)
[2018-06-05] MEDS: SODIUM CHLORIDE FLUSH 10ML SYR IVF SCH ×2 (09:25→20:38)
[2018-06-05] MEDS: ENOXAPARIN 40 MG/0.4 ML SQ SCH (09:25)
[2018-06-05] MEDS: MUPIROCIN OINT 2%, 22GM NAS SCH ×2 (09:25→20:39)
[2018-06-05] MEDS: PRAMIPEXOLE 0.75 MG PO SCH (09:27)
[2018-06-05] MEDS: DOCUSATE 100 MG CAPSULE PO SCH ×2 (09:27→20:38)
[2018-06-05] MEDS: CARBIDOPA/LEVODOPA CR 50 MG/200 MG TABLET PO SCH ×3 (10:13→20:38)
[2018-06-05] MEDS: OXYcodone IR 5MG TABLET PO PRN ×2 (13:02→17:09)
[2018-06-05 13:08] VITALS: BP 95/62
[2018-06-05] MEDS ORDERED: WARFARIN 5 MG TABLET PO-COUM ONE (18:00)
[2018-06-05 18:45] VITALS: BP 99/64
[2018-06-05] MEDS: ATORVASTATIN 40 MG TABLET PO SCH (20:38)
[2018-06-06 01:10] VITALS: BP 123/82
[2018-06-06] MEDS: OXYcodone IR 5MG TABLET PO PRN ×2 (04:11→10:30)
[2018-06-06 04:32] LABS: ANION GAP 4 mmol/L (5-15); CALCIUM 7.8 mg/dL (8.5-10.1); CHLORIDE 107 mmol/L (98-107); CREATININE 0.81 mg/dL (0.7-1.3)
[2018-06-06 04:35] LABS: BASOPHILS # (AUTO) 0.05 x10^3/uL (0-0.1); BASOPHILS % (AUTO) 0 % (0-1); EOSINOPHILS # (AUTO) 0.16 x10^3/uL (0-0.4); EOSINOPHILS % (AUTO) 2 % (1-7); LYMPHOCYTES % (AUTO) 21 % (22-44); MD NO; MEAN CORPUSCULAR HEMOGLOBIN 35.1 pg (27.5-34.5); MEAN CORPUSCULAR HGB CONC 33.9 g/dL (33.2-36.2); MEAN CORPUSCULAR VOLUME 103.5 fL (81-97); MEAN PLATELET VOLUME 9.5 fL (7.4-10.4); MONOCYTES # (AUTO) 0.86 x10^3/uL (0.2-0.8); MONOCYTES % (AUTO) 8 % (2-9); NEUTROPHILS # (AUTO) 7.66 x10^3/uL (1.8-6.8); NEUTROPHILS % (AUTO) 70 % (42-75); PLATELET COUNT 236 x10^3/uL (130-400); RED BLOOD COUNT 2.69 x10^6/uL (4.38-5.82); RED CELL DISTRIBUTION WIDTH 14.6 % (9.4-14.8)
[2018-06-06 04:37] LABS: INTERNATIONAL NORMALIZED RATIO 1.8 (0.93-1.1); PROTHROMBIN TIME 18.5 Seconds (9.6-11.5)
[2018-06-06 07:01] VITALS: BP 129/85
[2018-06-06] MEDS: METOPROLOL TARTRATE 25 MG TABLET PO SCH ×2 (08:03→17:03)
[2018-06-06] MEDS: ASPIRIN 81 MG TABLET EC PO SCH (08:07)
[2018-06-06] MEDS: FUROSEMIDE 20 MG/2 ML IV SCH ×2 (08:07→17:08)
[2018-06-06] MEDS: POTASSIUM CHLORIDE 10 MEQ TABLET.ER PO SCH (08:08)
[2018-06-06] MEDS: CARBIDOPA/LEVODOPA CR 50 MG/200 MG TABLET PO SCH ×3 (08:08→17:01)
[2018-06-06] MEDS: DOCUSATE 100 MG CAPSULE PO SCH ×2 (08:09→21:21)
[2018-06-06] MEDS: PRAMIPEXOLE 0.75 MG PO SCH (08:10)
[2018-06-06] MEDS: MUPIROCIN OINT 2%, 22GM NAS SCH ×2 (08:11→21:22)
[2018-06-06] MEDS: SODIUM CHLORIDE FLUSH 10ML SYR IVF SCH ×2 (08:15→21:19)
[2018-06-06] MEDS: WARFARIN BIOPROSTHETIC VALVE PROTOCOL 2-3 XX SCH (09:00)
[2018-06-06] MEDS: ENOXAPARIN 40 MG/0.4 ML SQ SCH (10:30)
[2018-06-06 13:05] VITALS: BP 110/75
[2018-06-06 16:59] VITALS: BP 106/73
[2018-06-06] MEDS ORDERED: WARFARIN 5 MG TABLET PO-COUM ONE (18:00)
[2018-06-06 20:30] VITALS: BP 119/75
[2018-06-06] MEDS: ATORVASTATIN 40 MG TABLET PO SCH (21:20)
[2018-06-07] VITALS (7 sets, daily range): BP systolic 101–134; BP diastolic 66–88
[2018-06-07 04:37] LABS: BASOPHILS # (AUTO) 0.05 x10^3/uL (0-0.1); BASOPHILS % (AUTO) 1 % (0-1); EOSINOPHILS # (AUTO) 0.22 x10^3/uL (0-0.4); EOSINOPHILS % (AUTO) 2 % (1-7); LYMPHOCYTES # (AUTO) 2.82 x10^3/uL (1-3.4); LYMPHOCYTES % (AUTO) 27 % (22-44); MD NO; MEAN CORPUSCULAR HEMOGLOBIN 34.9 pg (27.5-34.5); MEAN CORPUSCULAR HGB CONC 33.8 g/dL (33.2-36.2); MEAN CORPUSCULAR VOLUME 103.2 fL (81-97); MEAN PLATELET VOLUME 8.9 fL (7.4-10.4); MONOCYTES # (AUTO) 0.86 x10^3/uL (0.2-0.8); MONOCYTES % (AUTO) 8 % (2-9); NEUTROPHILS # (AUTO) 6.69 x10^3/uL (1.8-6.8); NEUTROPHILS % (AUTO) 63 % (42-75); PLATELET COUNT 277 x10^3/uL (130-400); RED BLOOD COUNT 2.71 x10^6/uL (4.38-5.82); RED CELL DISTRIBUTION WIDTH 14.3 % (9.4-14.8)
[2018-06-07 04:51] LABS: INTERNATIONAL NORMALIZED RATIO 2.22 (0.93-1.1); PROTHROMBIN TIME 22.7 Seconds (9.6-11.5)
[2018-06-07 04:55] LABS: ANION GAP 5 mmol/L (5-15); CALCIUM 8.3 mg/dL (8.5-10.1); CHLORIDE 106 mmol/L (98-107)
[2018-06-07 04:56] LABS: CREATININE 0.86 mg/dL (0.7-1.3)
[2018-06-07] MEDS: METOPROLOL TARTRATE 25 MG TABLET PO SCH ×2 (05:25→17:01)
[2018-06-07] MEDS ORDERED: FILTER 0.22 MICRON IV ONE (06:00)
[2018-06-07] MEDS ORDERED: AMIODARONE 150 MG in DEXTROSE 5% 100 ML IV ONE ×2 (06:00→12:00)
[2018-06-07] MEDS: DOCUSATE 100 MG CAPSULE PO SCH ×2 (07:39→21:11)
[2018-06-07] MEDS: CARBIDOPA/LEVODOPA CR 50 MG/200 MG TABLET PO SCH ×3 (07:41→17:00)
[2018-06-07] MEDS: ASPIRIN 81 MG TABLET EC PO SCH (07:42)
[2018-06-07] MEDS: POTASSIUM CHLORIDE 10 MEQ TABLET.ER PO SCH (07:43)
[2018-06-07] MEDS: PRAMIPEXOLE 0.75 MG PO SCH (07:45)
[2018-06-07] MEDS: MUPIROCIN OINT 2%, 22GM NAS SCH (07:46)
[2018-06-07] MEDS: SODIUM CHLORIDE FLUSH 10ML SYR IVF SCH ×2 (07:49→21:10)
[2018-06-07] MEDS: FUROSEMIDE 20 MG/2 ML IV SCH (07:49)
[2018-06-07] MEDS: ENOXAPARIN 40 MG/0.4 ML SQ SCH (07:56)
[2018-06-07] MEDS: WARFARIN BIOPROSTHETIC VALVE PROTOCOL 2-3 XX SCH (08:05)
[2018-06-07] MEDS ORDERED: FILTER 0.22 MICRON FOR AMIODARONE IV PRN (12:00)
[2018-06-07] MEDS ORDERED: AMIODARONE 900 MG in DEXTROSE 5% 482 ML IV PRN (13:00)
[2018-06-07] MEDS: FUROSEMIDE 40 MG/4 ML IV SCH (17:00)
[2018-06-07] MEDS ORDERED: WARFARIN 5 MG TABLET PO-COUM ONE (18:00)
[2018-06-07] MEDS: ATORVASTATIN 40 MG TABLET PO SCH (21:11)
[2018-06-08 01:45] VITALS: BP 111/71
[2018-06-08 04:50] LABS: CHLORIDE 106 mmol/L (98-107)
[2018-06-08 04:51] LABS: INTERNATIONAL NORMALIZED RATIO 2.89 (0.93-1.1); PROTHROMBIN TIME 29.4 Seconds (9.6-11.5)
[2018-06-08 04:57] LABS: ANION GAP 7 mmol/L (5-15); CREATININE 0.81 mg/dL (0.7-1.3)
[2018-06-08 06:22] VITALS: BP 130/82
[2018-06-08] MEDS: METOPROLOL TARTRATE 25 MG TABLET PO SCH (06:22)
[2018-06-08 06:57] VITALS: BP 125/69
[2018-06-08] MEDS ORDERED: ASPI-621 PO (07:28)
[2018-06-08] MEDS ORDERED: DOCU-131 PO (07:28)
[2018-06-08] MEDS ORDERED: WARF5TAB PO (07:28)
[2018-06-08] MEDS ORDERED: METO25TA35 PO (07:28)
[2018-06-08] MEDS ORDERED: FURO40TA6 PO (07:28)
[2018-06-08] MEDS ORDERED: POTA20PA25 PO (07:28)
[2018-06-08] MEDS ORDERED: ATOR40TA78 PO (07:28)
[2018-06-08] MEDS ORDERED: PRAMIPEXOLE PO (07:28)
[2018-06-08] MEDS ORDERED: POTASSIUM CHLORIDE 20 MEQ TAB.ER.PRT PO ONE (07:30)
[2018-06-08] MEDS ORDERED: POTASSIUM CHLORIDE 20 MEQ PACKET PO SCH (07:30)
[2018-06-08] MEDS: FUROSEMIDE 40 MG/4 ML IV SCH (08:17)
[2018-06-08] MEDS: ASPIRIN 81 MG TABLET EC PO SCH (08:20)
[2018-06-08] MEDS: DOCUSATE 100 MG CAPSULE PO SCH (08:20)
[2018-06-08] MEDS: CARBIDOPA/LEVODOPA CR 50 MG/200 MG TABLET PO SCH (08:20)
[2018-06-08] MEDS: PRAMIPEXOLE 0.75 MG PO SCH (08:21)
[2018-06-08] MEDS: SODIUM CHLORIDE FLUSH 10ML SYR IVF SCH (08:35)
[2018-06-08] MEDS: WARFARIN BIOPROSTHETIC VALVE PROTOCOL 2-3 XX SCH (08:36)
[2018-06-08] MEDS ORDERED: POTASSIUM CHLORIDE 10 MEQ TABLET.ER PO SCH (09:00)
[2018-06-08 09:14] LABS: MICROSCOPIC AUTO
[2018-06-08 09:15] LABS: CULTURE INDICATED? YES
[2018-06-08] MEDS ORDERED: WARFARIN 2.5 MG TABLET PO-COUM ONE (18:00)
== END 2018-06-08 13:30 | DRG 219 ==
LOC: 5SO 14:28 → CCU 06-02 08:20 → 5SO 06-03 17:20
PROVIDERS: ADMIT Hospitalist; ATTEND Internal Medicine
PROC: 02QX0ZZ Repair Thoracic Aorta, Ascending/Arch, Open Approach (ICD-10-PCS; 2018-06-02)
PROC: 0210099 Bypass Coronary Artery, One Artery from Left Internal Mammary with Autologous Venous Tissue, Open Approach (ICD-10-PCS; 2018-06-02)
PROC: B24BZZ4 Ultrasonography of Heart with Aorta, Transesophageal (ICD-10-PCS; 2018-06-02)
PROC: 5A1223Z Performance of Cardiac Pacing, Continuous (ICD-10-PCS; 2018-06-02)
PROC: 02RF08Z Replacement of Aortic Valve with Zooplastic Tissue, Open Approach (ICD-10-PCS; principal; 2018-06-02 07:30)
DX: I71.2 Thoracic aortic aneurysm, without rupture (principal); J96.00 Acute respiratory failure, unspecified whether with hypoxia or hypercapnia; G81.94 Hemiplegia, unspecified affecting left nondominant side; J98.11 Atelectasis; I25.10 Atherosclerotic heart disease of native coronary artery without angina pectoris; I35.1 Nonrheumatic aortic (valve) insufficiency; G20 Parkinson's disease; D72.829 Elevated white blood cell count, unspecified; G57.91 Unspecified mononeuropathy of right lower limb; E78.5 Hyperlipidemia, unspecified; G89.18 Other acute postprocedural pain; G89.29 Other chronic pain; M54.9 Dorsalgia, unspecified; I10 Essential (primary) hypertension; I35.2 Nonrheumatic aortic (valve) stenosis with insufficiency; R29.810 Facial weakness; Z80.3 Family history of malignant neoplasm of breast; Z82.49 Family history of ischemic heart disease and other diseases of the circulatory system; Z85.46 Personal history of malignant neoplasm of prostate; Z86.73 Personal history of transient ischemic attack (TIA), and cerebral infarction without residual deficits; Z86.79 Personal history of other diseases of the circulatory system; Z87.891 Personal history of nicotine dependence; I49.3 Ventricular premature depolarization; Z90.49 Acquired absence of other specified parts of digestive tract; Z92.3 Personal history of irradiation
CPT/HCPCS: 36415; 36600; 70450; 70544; 70548; 70553; 71045; 71046; 80047; 80048; 80053; 81001; 81003; 82040; 82330; 82800; 82803; 82810; 82947; 82962; 83036; 83735; 84100; 84132; 84295; 85014; 85018; 85025; 85049; 85347; 85610; 85730; 86850; 86900; 86923; 87081; 87086; 88304; 88305; 88311; 93005; 93312; 93321; 93325; 94002; C1768; J0697; J1644; J1650; J1815; J1940; J2250; J2704; J3010; J3370; J3475; J3480; J3490; P9045; P9047; C1751; C1760; J0171; J0282; J2370; J2440; J2930; J7050; J7120; Q0163

== ENCOUNTER → 2018-08-10 | Outpatient (CLI) | payer MEDICARE ==
[~2018-08-10] MED LIST changes: +ASPI-621 PO; +ATOR40TA78 PO; +CARB1TAB44 PO; +DOCU-131 PO; +FURO40TA6 PO; +METO25TA35 PO; +POTA20PA25 PO; +PRAMIPEXOLE PO; +WARF5TAB PO
== END | disposition home or self-care (01) ==
LOC: RAD 16:02
PROVIDERS: ATTEND Physician Assistant Surgical
DX: M16.0 Bilateral primary osteoarthritis of hip (principal); Z85.46 Personal history of malignant neoplasm of prostate; Z87.891 Personal history of nicotine dependence
CPT/HCPCS: 73523

== ENCOUNTER → 2018-08-17 | Outpatient (CLI) | payer MEDICARE ==
[~2018-08-17] MED LIST changes: -PRAM0.7513 PO; +PRAM0.7519 PO
== END | disposition home or self-care (01) ==
LOC: CFH 12:20
PROVIDERS: ATTEND Internal Medicine Cardiovascular Disease
DX: I51.7 Cardiomegaly (principal); Z95.2 Presence of prosthetic heart valve; I34.8 Other nonrheumatic mitral valve disorders; I71.2 Thoracic aortic aneurysm, without rupture; G20 Parkinson's disease; C61 Malignant neoplasm of prostate; Z87.891 Personal history of nicotine dependence
CPT/HCPCS: 93306

== ENCOUNTER → 2020-10-24 | Outpatient (CLI) | payer MEDICARE ==
[~2020-10-24] MED LIST changes: -ASPI-621 PO; +ASPI81TA45 PO; +TICA90TA PO; -WARF5TAB PO; +WARF5TAB2 PO
== END | disposition home or self-care (01) ==
LOC: CFH 08:52
PROVIDERS: ATTEND Internal Medicine Cardiovascular Disease
DX: I34.8 Other nonrheumatic mitral valve disorders (principal); I51.7 Cardiomegaly; Z95.2 Presence of prosthetic heart valve
CPT/HCPCS: 93306

== ENCOUNTER 2021-04-17 07:49 | Outpatient (CLI) | payer MEDICARE | END 2021-04-17 23:59 | disposition home or self-care (01) | LOC: CVU 07:49 | PROVIDERS: ATTEND Internal Medicine Cardiovascular Disease | DX: I65.23 Occlusion and stenosis of bilateral carotid arteries (principal); I25.10 Atherosclerotic heart disease of native coronary artery without angina pectoris | CPT/HCPCS: 93880 ==